=== PATIENT | female | born 1980 | race Caucasian/White ===

== ENCOUNTER 2018-03-16 15:27 | Emergency (ER) | payer OTHER ==
[~2018-03-16] VITALS: Ht 167.6 cm; Wt 75.0 kg
[~2018-03-16 15:27] MED LIST: ALBU8HFA4 IH; GABA-529 PO
[2018-03-16] MEDS ORDERED: IBUP-2071 PO (15:46)
[2018-03-16] MEDS ORDERED: CYCL10 PO (15:46)
[2018-03-16 16:17] LABS: BASOPHILS % (AUTO) 0.5 % (0.0-2.0); EOSINOPHILS % (AUTO) 0.5 % (1.0-6.0); HEMATOCRIT 38.2 % (36-46); HEMOGLOBIN 13.2 g/dL (12.0-16.0); LYMPHOCYTES # (AUTO) 1.4 K/uL (1.0-4.8); LYMPHOCYTES % (AUTO) 14.5 % (22.0-44.0); MEAN CORPUSCULAR HEMOGLOBIN 30.1 pg (26.0-34.0); MEAN CORPUSCULAR HGB CONC 34.5 G/dL (31.0-37.0); MEAN CORPUSCULAR VOLUME 87 fL (80-100); MONOCYTES # (AUTO) 0.7 K/uL (0.1-1.0); MONOCYTES % (AUTO) 7.3 % (2.0-9.0); NEUTROPHILS # (AUTO) 7.5 K/uL (1.8-7.7); NEUTROPHILS % (AUTO) 77.2 % (40.0-70.0); PLATELET COUNT (AUTO) 288 K/uL (150-450); RED BLOOD CELL COUNT(AUTO) 4.38 MIL/uL (4.00-5.20); RED CELL DISTRIBUTION WIDTH 13.5 % (11.5-14.5)
[2018-03-16 16:27] LABS: ANION GAP 8 mmol/L (8-16); CALCIUM, TOTAL 9.4 mg/dL (8.8-10.5); CARBON DIOXIDE 28 mmol/L (22-29); CHLORIDE 102 mmol/L (98-107); CREATININE 0.91 mg/dL (0.60-1.30); GLOMERULAR FILTR. RATE CALC > 60 mL/min (>60); GLUCOSE,RANDOM 89 mg/dL (70-110); POTASSIUM 3.9 mmol/L (3.5-5.1); SODIUM SERUM 138 mmol/L (136-145); UREA NITROGEN, BLOOD 12 mg/dL (7-18)
[2018-03-16 16:30] LABS: PROTHROMBIN TIME 10.1 SEC (9.4-11.6)
[2018-03-16 16:44] LABS: B-TYPE NATRIURETIC PEPTIDE 32 pg/mL (0-100)
[2018-03-16 16:53] LABS: ALANINE AMINOTRANSFERASE 22 U/L (12-78); ALBUMIN 3.8 g/dL (3.4-5.0); ALKALINE PHOSPHATASE 64 U/L (46-116); ASPARTATE AMINOTRANSFERASE 14 U/L (15-37); BILIRUBIN,TOTAL 0.4 mg/dL (0.1-1.0); CREATINE KINASE MB 0.5 ng/mL (0-5); CREATINE KINASE, TOTAL 77 U/L (26-192); TOTAL PROTEIN, SERUM 7.9 g/dL (6.4-8.2)
[2018-03-16 17:56] LABS: APPEARANCE,URINE CLEAR (CLEAR); BILIRUBIN,URINE NEGATIVE (NEGATIVE); GLUCOSE, URINE (UA) NEGATIVE (NEGATIVE); KETONES,URINE NEGATIVE (NEGATIVE); LEUKOCYTE ESTERASE ,URINE NEGATIVE (NEGATIVE); NITRATE,URINE NEGATIVE (NEGATIVE); OCCULT BLOOD,URINE TRACE (NEGATIVE); PH,URINE 6.5 (5.0-8.0); PROTEIN,URINE NEGATIVE (NEGATIVE); UROBILINOGEN,URINE 0.2 mg/dL (<=1.0)
[2018-03-16] MEDS ORDERED: ONDANSETRON HCL 4 MG/2 ML VIAL IVP ONE (18:00)
[2018-03-16 18:08] LABS: BACTERIA,URINE Moderate /HPF (None Seen); RBC,URINE 0-2 /HPF (0-2); SQUAMOUS EPITHELIAL CELL,UR Few /LPF (None Seen); WBC,URINE None Seen /HPF (0-5)
[2018-03-16 21:43] VITALS: BP 125/70
== END 2018-03-16 21:50 | disposition home or self-care (01) ==
LOC: EMS 15:33
DX: R07.9 Chest pain, unspecified (principal); J45.909 Unspecified asthma, uncomplicated; Z88.6 Allergy status to analgesic agent; Z88.1 Allergy status to other antibiotic agents; Z88.8 Allergy status to other drugs, medicaments and biological substances
CPT/HCPCS: 36415; 71045; 80053; 81001; 81025; 82550; 82553; 83880; 84484; 85025; 85610; 85730; 87077; 87086; 93005; 96374; 99285; J2405

== ENCOUNTER 2018-09-22 17:25 | Emergency (ER) | payer OTHER ==
[~2018-09-22] VITALS: Ht 165.1 cm; Wt 81.8 kg
[~2018-09-22 17:25] MED LIST changes: +CYCL10 PO; -GABA-529 PO; +IBUP-2071 PO
[2018-09-22] MEDS ORDERED: PRAZ1 PO (17:36)
[2018-09-22] MEDS ORDERED: MONT10TA21 PO (17:36)
[2018-09-22] MEDS ORDERED: IPRATROPIUM BROMIDE 0.5 MG/2.5 ML NEB SOLUTION NEB ONE ×2 (17:41→17:45)
[2018-09-22] MEDS ORDERED: ALBUTEROL SULFATE 2.5 MG/0.5 ML NEB SOLUTION NEB ONE ×3 (17:41→17:45)
[2018-09-22] MEDS ORDERED: ALBUTEROL SULFATE HFA 90 MCG/PUFF 8 GM INHALER IH ONE (18:00)
[2018-09-22] MEDS ORDERED: PredniSONE 20 MG TABLET PO ONE (18:45)
[2018-09-22 19:37] VITALS: BP 143/83
== END 2018-09-22 19:40 | disposition home or self-care (01) ==
LOC: EMS 17:26
DX: J45.901 Unspecified asthma with (acute) exacerbation (principal); Z88.1 Allergy status to other antibiotic agents; Z88.6 Allergy status to analgesic agent; Z79.899 Other long term (current) drug therapy
CPT/HCPCS: 71046; 94640; 99283; J7512; J3535

== ENCOUNTER 2019-02-23 16:10 | Emergency (ER) | payer OTHER ==
[~2019-02-23] VITALS: Ht 167.6 cm; Wt 81.8 kg
[~2019-02-23 16:10] MED LIST changes: +MONT10TA21 PO; +PRAZ1 PO
[2019-02-23] MEDS ORDERED: DIVA-76 PO (16:33)
[2019-02-23] MEDS ORDERED: DIAZ2 PO (16:33)
[2019-02-23 17:50] VITALS: BP 119/83
[2019-02-23 18:08] LABS: APPEARANCE,URINE CLOUDY (CLEAR); BILIRUBIN,URINE NEGATIVE (NEGATIVE); GLUCOSE, URINE (UA) NEGATIVE (NEGATIVE); KETONES,URINE NEGATIVE (NEGATIVE); LEUKOCYTE ESTERASE ,URINE SMALL (NEGATIVE); NITRATE,URINE POSITIVE (NEGATIVE); OCCULT BLOOD,URINE MODERATE (NEGATIVE); PROTEIN,URINE NEGATIVE (NEGATIVE); UROBILINOGEN,URINE 0.2 mg/dL (<=1.0)
[2019-02-23 18:28] LABS: BACTERIA,URINE Many /HPF (None Seen); SQUAMOUS EPITHELIAL CELL,UR Many /LPF (None Seen)
[2019-02-23 18:30] LABS: RBC,URINE 0-2 /HPF (0-2)
== END 2019-02-23 18:03 | disposition home or self-care (01) ==
LOC: EMS 16:11
DX: N12 Tubulo-interstitial nephritis, not specified as acute or chronic (principal); J45.909 Unspecified asthma, uncomplicated; Z88.6 Allergy status to analgesic agent; Z88.1 Allergy status to other antibiotic agents; Z79.899 Other long term (current) drug therapy
CPT/HCPCS: 87086

== ENCOUNTER 2020-02-14 21:15 | Emergency (ER) | payer OTHER ==
[~2020-02-14] VITALS: Ht 167.6 cm; Wt 81.8 kg
[~2020-02-14 21:15] MED LIST changes: +DIAZ2 PO; +DIVA-76 PO
[2020-02-14] MEDS ORDERED: LIDOCAINE 5% TRANSDERMAL PATCH TD ONE (22:45)
[2020-02-14] MEDS ORDERED: DIAZEPAM 5 MG TABLET PO ONE (22:45)
[2020-02-14] MEDS ORDERED: ACETAMINOPHEN 500 MG TABLET PO ONE (22:45)
[2020-02-14] MEDS ORDERED: DEXAMETHASONE SOD PHOS 4 MG/ML 5 ML VIAL IM ONE (22:45)
[2020-02-14] MEDS ORDERED: KETOROLAC TROMETHAMINE 30 MG/ML VIAL IM ONE (22:45)
[2020-02-15 00:40] VITALS: BP 111/65
== END 2020-02-15 00:41 | disposition home or self-care (01) ==
LOC: EMS 21:15
DX: M54.2 Cervicalgia (principal); R20.2 Paresthesia of skin; G89.29 Other chronic pain; J45.909 Unspecified asthma, uncomplicated; Z88.6 Allergy status to analgesic agent; Z88.1 Allergy status to other antibiotic agents
CPT/HCPCS: 96372; 99284; J1100; J1885

== ENCOUNTER 2020-04-30 12:33 | Emergency (ER) | payer OTHER ==
[~2020-04-30] VITALS: Ht 167.6 cm; Wt 81.8 kg
[~2020-04-30 12:33] MED LIST changes: +DIVA-111 PO; -DIVA-76 PO
[2020-04-30 12:37] VITALS: BP 126/78
[2020-04-30] MEDS ORDERED: ALBUTEROL SULFATE HFA 90 MCG/PUFF 8 GM INHALER IH ONE (14:30)
== END 2020-04-30 14:43 | disposition home or self-care (01) ==
LOC: EMS 12:35
DX: J45.909 Unspecified asthma, uncomplicated (principal); Z88.6 Allergy status to analgesic agent; Z88.1 Allergy status to other antibiotic agents
CPT/HCPCS: 94640; J3535